=== PATIENT | female | born 1965 | race Caucasian/White ===

== ENCOUNTER → 2016-06-01 16:41 | Outpatient (CLI) | payer MEDICARE, MEDICAID ==
[2016-04-05 07:28] VITALS: BMI 65.6
[~2016-06-01 16:41] MED LIST: AMITRIPTYLINE100 MG PO; CELEXA10 MG PO; GLUCOPHAGE500 MG PO; LYRICA150 MG PO; MOBIC7.5 MG PO; MYLANTA II SUSP30 ML PO; PRINIVIL20 MG PO; ULTRAM50 MG PO; VITAMIN D2000 UNIT PO; ZOCOR20 MG PO; ZYRTEC10 MG PO
== END | disposition home or self-care (01) ==
LOC: D.MAMMO 10:00
DX: Z12.31 Encounter for screening mammogram for malignant neoplasm of breast (principal)

== ENCOUNTER 2016-06-14 15:06 | Emergency (ER) | payer MEDICARE, MEDICAID ==
[2016-04-05 07:28] VITALS: BMI 65.6
[2016-06-14 16:57] LABS: APPEARANCE HAZY (CLEAR); COLOR YELLOW (YELLOW); LEUKOCYTE ESTERASE TRACE (NEGATIVE); SPECIFIC GRAVITY 1.015 (1.005-1.020)
[2016-06-14 16:58] LABS: BILIRUBIN NEGATIVE (NEGATIVE); GLUCOSE NEGATIVE (NEGATIVE); KETONE NEGATIVE (NEGATIVE); NITRITE POSITIVE (NEGATIVE); PROTEIN NEGATIVE (NEGATIVE); UROBILINOGEN NORMAL (NORMAL)
[2016-06-14 16:59] LABS: BACTERIA MANY /hpf (NONE SEEN); EPITHELIAL CELLS 0-5 /hpf (0-5); RED CELLS - URINE NONE SEEN /hpf (0-5); WHITE CELLS - URINE 0-5 /hpf (0-5)
== END 2016-06-14 23:47 | disposition home or self-care (01) ==
LOC: D.ER 15:06
PROVIDERS: Emergency Medicine
DX: M54.5 Low back pain (principal); N39.0 Urinary tract infection, site not specified; F32.9 Major depressive disorder, single episode, unspecified; M79.7 Fibromyalgia; I10 Essential (primary) hypertension

== ENCOUNTER 2016-07-29 19:36 | Emergency (ER) | payer MEDICARE, MEDICAID ==
[2016-04-05 07:28] VITALS: BMI 65.6
== END 2016-07-29 23:09 | disposition home or self-care (01) ==
LOC: D.ER 19:36
DX: M25.412 Effusion, left shoulder (principal); M25.512 Pain in left shoulder; M79.7 Fibromyalgia; I10 Essential (primary) hypertension

== ENCOUNTER 2016-08-09 18:01 | Emergency (ER) | payer MEDICARE, MEDICAID ==
[2016-04-05 07:28] VITALS: BMI 65.6
== END 2016-08-09 23:16 | disposition home or self-care (01) ==
LOC: D.ER 18:01
DX: S16.1XXA Strain of muscle, fascia and tendon at neck level, initial encounter (principal); V43.52XA Car driver injured in collision with other type car in traffic accident, initial encounter; Y93.89 Activity, other specified; Y92.410 Unspecified street and highway as the place of occurrence of the external cause

== ENCOUNTER → 2016-09-01 19:10 | Outpatient (CLI) | payer MEDICARE, MEDICAID ==
[2016-04-05 07:28] VITALS: BMI 65.6
== END | disposition home or self-care (01) ==
LOC: D.SLEEP 19:10
DX: G47.33 Obstructive sleep apnea (adult) (pediatric) (principal)

== ENCOUNTER → 2016-09-17 12:47 | Outpatient (CLI) | payer MEDICARE, MEDICAID ==
[2016-04-05 07:28] VITALS: BMI 65.6
== END | disposition home or self-care (01) ==
LOC: D.RT 09-16 08:00 → D.RAD 09-16 09:00 → D.LAB 09-16 09:30 → D.SLEEP 09-16 20:00 → D.RT 12:47
DX: R06.00 Dyspnea, unspecified (principal)

== ENCOUNTER → 2016-09-20 19:29 | Outpatient (CLI) | payer MEDICARE, MEDICAID ==
[2016-04-05 07:28] VITALS: BMI 65.6
== END | disposition home or self-care (01) ==
LOC: D.SLEEP 09-16 20:00
DX: G47.33 Obstructive sleep apnea (adult) (pediatric) (principal)

== ENCOUNTER → 2016-10-18 08:58 | Outpatient (CLI) | payer MEDICARE, MEDICAID ==
[2016-04-05 07:28] VITALS: BMI 65.6
--- NOTE | ~2016-10-18 | EC ---
PATIENT:EMILE GRULLON DATE OF SERVICE: 10/18/16 SEX: F MEDICAL RECORD: [id number] DATE OF : 67 LOCATION:[facility] AGE OF PATIENT: 50 ADMISSION DATE: 10/18/16 REFERRING PHYSICIAN: INTERPRETING PHYSICIAN: GABE COE MD ECHOCARDIOGRAM REPORT ECHO CHARGES 4 ECHO COMPLETE CLINICAL DIAGNOSIS: DYSPNEA/TACHYCARDIA/EDEMA ECHOCARDIOGRAPHIC MEASUREMENTS (adult normal given) AC root (d.<3.7cm) 2.8 LV Septum d (<1.2 cm> 1.6 Valve Excursion 1.9 LV Septum (systole) 1.7 Left Atria (s.<4.0cm> 4.6 LVPW d(<1.2cm) 1.2 RV (d.<2.3cm) 2.8 LVPW (sytole) 1.7 LV diastole(<5.6CM) 4.5 MV E-F(>70mm/sec) LV systole 2.8 LVOT Diameter 2.1 MV exc.(>10mm) Est.ejection fraction (50-75%) Pericardial Effusion N DOPPLER: LVIT A 53.0 E 96.0 LA RVSP 29.0 LVOT 100 AOP1/2T Asc. Ao 116 RVOT 58.0 RA PA 85.0 AV Gradient Peak 5.4 AV Mean 2.6 AV Area 2.8 MV Gradient Peak 4.7 MV Mean 1.5 MV Area COMMENTS: Aeronautical Engineering Teacher: Kym PEREZOE Export Sales Assistant:10 Dr. Cook TAPE# PACS DATE OF SERVICE: 10/18/2016 Adequate 2D echo, color flow, spectral Doppler and M-mode. LVH present. LV internal dimension is normal. Wall motion is normal. EF is greater than 55%. Aortic valve is tricuspid. No stenosis by Doppler interrogation. The left atrium is normal. Mitral valve shows no prolapse. Trace MR. Right-sided chamber is normal. Trace TR. TRANSINT:[id number] Voice Confirmation ID: [id number] DOCUMENT ID: [id number] ECHOCARDIOGRAM REPORT [id number] EMILE GRULLON GABE COE MD CC: [id number] DICTATION DATE: 10/18/16 1337 OPERATOR CAVITY PUMP: 10/19/16 0014 DEP CLI 10/18/[address] [address]
[2016-10-18 10:52] LABS: CREATININE - SERUM 0.9 mg/dL (0.6-1.3)
--- NOTE | 2016-10-18 14:28 | NUR ---
Called to IR to assist with starting an IV for procedure. 20 gauge inserted in left ac for access. Vanna Luu RN
== END | disposition home or self-care (01) ==
LOC: D.ECHO 08:58
PROVIDERS: Internal Medicine Pulmonary Disease
DX: R60.0 Localized edema (principal); R00.0 Tachycardia, unspecified; R06.00 Dyspnea, unspecified

== ENCOUNTER 2017-02-11 16:30 | Emergency (ER) | payer MEDICARE, MEDICAID ==
[2016-04-05 07:28] VITALS: BMI 65.6
== END 2017-02-11 19:24 | disposition home or self-care (01) ==
LOC: D.ER 16:30
DX: S39.012A Strain of muscle, fascia and tendon of lower back, initial encounter (principal); W01.0XXA Fall on same level from slipping, tripping and stumbling without subsequent striking against object, initial encounter; Y93.89 Activity, other specified; Y92.029 Unspecified place in mobile home as the place of occurrence of the external cause; S93.401A Sprain of unspecified ligament of right ankle, initial encounter; S80.01XA Contusion of right knee, initial encounter; S70.01XA Contusion of right hip, initial encounter; I10 Essential (primary) hypertension

== ENCOUNTER 2017-05-30 22:03 | Emergency (ER) | payer MEDICARE, MEDICAID ==
[2016-04-05 07:28] VITALS: BMI 65.6
== END 2017-05-30 23:33 | disposition home or self-care (01) ==
LOC: D.ER 22:03
DX: M25.561 Pain in right knee (principal); F17.200 Nicotine dependence, unspecified, uncomplicated

== ENCOUNTER 2019-01-16 19:00 | Outpatient (CLI) | payer MEDICARE ==
[2016-04-05 07:28] VITALS: BMI 65.6
== END 2019-01-16 23:59 | disposition home or self-care (01) ==
LOC: D.MAMMO 19:00
PROVIDERS: ATTEND Nurse Practitioner Family
DX: Z12.31 Encounter for screening mammogram for malignant neoplasm of breast (principal)

== ENCOUNTER 2019-04-28 11:50 | Emergency (ER) | payer MEDICARE ==
[~2019-04-28] VITALS: Ht 160 cm; Wt 146.8 kg
[2019-04-28 11:56] VITALS: Ht 160 cm; Wt 146.8 kg
[2019-04-28] MEDS ORDERED: AMBIEN5 MG PO (11:59)
[2019-04-28] MEDS ORDERED: TOPAMAX100 MG PO (12:00)
[2019-04-28] MEDS ORDERED: LEXAPRO20 MG PO (12:00)
[2019-04-28] MEDS ORDERED: BIRTH CONTROL (12:00)
[2019-04-28] MEDS ORDERED: PEPCID40 MG PO (12:01)
[2019-04-28 12:18] LABS: BASOPHILS 0.2 % (0-2); HEMOGLOBIN 15.3 g/dL (12-16); IMMATURE GRANULOCYTES 0.3 % (0-5); MCH 29.7 pg (26.0-34.0); MCHC 33.3 g/dL (31.0-37.0); MCV 89.1 fL (80.0-100.0); MEAN PLATELET VOLUME 8.9 fL (7.4-10.4); MONOCYTES 6.2 % (2-11); NEUTROPHILS 73.3 % (40-80); PLATELET COUNT 258 10x3/uL (130-400); RBC 5.16 10x6/uL (4.00-5.40); RDW 13.9 % (11.5-14.5)
[2019-04-28 12:31] LABS: ANION GAP 12.7 mmol/L (8-16); CALCIUM 8.8 mg/dL (8.5-10.1); CARBON DIOXIDE 24.6 mmol/L (21.0-32.0); POTASSIUM - SERUM 3.3 mmol/L (3.5-5.1)
[2019-04-28 12:34] LABS: ALBUMIN 3.4 g/dL (3.4-5.0); BILIRUBIN - TOTAL 0.52 mg/dL (0.2-1.3); PROTEIN - SERUM 7.5 g/dL (6.4-8.2)
[2019-04-28 14:01] LABS: APPEARANCE CLEAR (CLEAR); BILIRUBIN NEGATIVE (NEGATIVE); COLOR YELLOW (YELLOW); GLUCOSE NEGATIVE (NEGATIVE); KETONE SMALL mg/dL (NEGATIVE); NITRITE NEGATIVE (NEGATIVE); PROTEIN TRACE mg/dL (NEGATIVE); UROBILINOGEN NORMAL (NORMAL)
[2019-04-28 14:05] LABS: BACTERIA FEW /hpf (NEGATIVE); EPITHELIAL CELLS 0-5 /hpf (0-5); MUCUS >1+ /lpf (NONE SEEN); RED CELLS - URINE 0-5 /hpf (0-5); WHITE CELLS - URINE 0-5 /hpf (NEGATIVE)
[2019-04-28] MEDS ORDERED: KEFLEX500 MG PO (14:39)
[2019-04-28] MEDS ORDERED: MACROBID100 MG PO (14:39)
[2019-04-28] MEDS ORDERED: ZOFRAN ODT4 MG/UDTAB PO (14:48)
[2019-04-28 15:06] VITALS: BP 141/70
== END 2019-04-28 15:07 | disposition home or self-care (01) ==
LOC: D.ER 11:50
PROVIDERS: Family Medicine
DX: R10.9 Unspecified abdominal pain (principal); R19.7 Diarrhea, unspecified; R11.2 Nausea with vomiting, unspecified; N39.0 Urinary tract infection, site not specified; M79.7 Fibromyalgia; I10 Essential (primary) hypertension

== ENCOUNTER 2019-05-10 14:13 | Inpatient (IN) | payer MEDICARE ==
[2019-05-10] VITALS (9 sets, daily range): BP systolic 111–151; BP diastolic 59–94
[~2019-05-10] VITALS: Ht 160 cm; Wt 140.0 kg
--- NOTE | ~2019-05-10 | HEMODYNAMI ---
PATIENT:EMILE GRULLON MEDICAL RECORD: [id number] : 67 LOCATION:[facility] D.2309 ADMISSION DATE: 05/10/19 Generatedon:05/14/201913:14 Patient name: EMILE GRULLON Patient #: [id number] SSN: DO B: 1965 Date of study: 05/14/2019 Page: Of Hemodynamic Procedure Report Patient Data Patient Demographics Procedure consent was obtained First Name: EMILE Gender: Female Last Name: YADI : 1965 [facility] Initial: K Age: 53 year(s) Patient #: [id number] Race: Unknown Additional ID: [id number] Contact details [address]: [address] [place] [address] State: [place] City: [facility] Zip code: [address] Past Medical History Allergies Allergen Reaction Date Comments Reported Tomatoes and 05/14/2019 tomato products Admission Admission Data Admission Date: 05/10/2019 Admission Time: 17:09 Room #: D.2309 Height (in.): 63 BSA: 2.33 (m2) Height (cm.): 160.02 BMI: 54.74 (kg/m2) Weight (lbs.): 309 Weight (kg.): 140.16 Procedure Procedure Types Cath Procedure Peripheral Cath Diagnostic Procedure Nremt Peripheral Procedures Venography Extremity Right Lower Ext. Venagram Procedure Description Procedure Date Procedure Date: 05/14/2019 Procedure Start Time: 12:03 Procedure Staff Name Function Larry Hester MD Performing Physician Shanna Degroot RT Mat Linker Christal Calles RN Nurse Denisha Cristina RN Nurse Ceasar Raya RT Scrub Procedure Data Cath Procedure Fluoroscopy Diagnostic fluoroscopy Total fluoroscopy Time: 8.8 time: 8.8 min min Diagnostic fluoroscopy Total fluoroscopy dose: 89 dose: 89 mGy mGy Contrast Material Contrast Material Type Amount (ml) Isovue 300 65 Diagnostic catheters Device Type Used For End Catheter Placement Merit Impress KA2 5Fr 65CM catheter ([id number]) Procedure Medications Medication Administration Route Dosage Heparin Flush Bag added to field 3 bags (1000units/500ml NS) Lidocaine 1% added to field 20 Versed I.V. 1 mg Fentanyl I.V. 50 mcg Versed I.V. 1 mg Fentanyl I.V. 50 mcg Versed I.V. 1 mg Fentanyl I.V. 50 mcg Heparin Bolus I.V. 3000 units Fentanyl I.V. 50 mcg Versed I.V. 1 mg Nitroglycerin IC/IA 600 mcg Benadryl I.V. 25 mg Versed I.V. 0.5 mg Fentanyl I.V. 25 mcg Hemodynamics Rest BSA: 2.33 (m2) O2 Consumption: Estimated: 210.15 (ml/min) O2 Consumption indexed : Estimated:90.19 (ml/min/m) Heart Rate: 51 (bpm) Snapshots Pre Cath Intra NCS Post Cath Vital Signs Time Heart Resp SPO2 etCO2 NIBP (mmHg) Rhythm Pain Sedation Rate (ipm) (%) (mmHg) Status Level (bpm) 11:55:41 52 13 98 26.3 134/71(104) NSR 0 (11) 10(A) , No pain 12:00:05 51 7 100 35.4 126/75(117) NSR 0 (11) 10(A) , No pain 12:04:29 53 9 100 21 138/77(116) NSR 0 (11) 10(A) , No pain 12:08:53 59 4 100 32.3 111/65(87) NSR 0 (11) 10(A) , No pain 12:13:11 68 10 90 0.7 115/82(91) NSR 0 (11) 10(A) , No pain 12:17:33 68 10 93 31.6 116/71(109) NSR 0 (11) 10(A) , No pain 12:21:56 58 6 99 29.3 132/68(114) NSR 0 (11) 10(A) , No pain 12:26:26 54 10 100 33.8 119/71(111) NSR 0 (11) 10(A) , No pain 12:30:50 63 12 100 35.3 107/73(99) NSR 0 (11) 10(A) , No pain 12:35:49 70 8 100 34.6 Measuring NSR 0 (11) 10(A) , No pain 12:36:05 67 8 99 33.8 110/73(104) NSR 0 (11) 10(A) , No pain 12:40:18 62 8 98 30.8 127/88(103) NSR 0 (11) 10(A) , No pain 12:44:38 56 19 100 30.1 139/86(117) NSR 0 (11) 10(A) , No pain 12:48:56 60 16 100 33.1 131/95(119) NSR 0 (11) 10(A) , No pain 12:53:18 57 6 99 9 130/91(121) NSR 0 (11) 10(A) , No pain 12:57:40 60 8 100 0.7 124/87(115) NSR 0 (11) 10(A) , No pain 13:02:39 53 7 0 Measuring NSR 0 (11) 10(A) , No pain 13:02:58 56 7 0 145/86(138) NSR 0 (11) 10(A) , No pain 13:07:57 0 Measuring NSR 0 (11) 10(A) , No pain 13:08:37 0 174/131(158) NSR 0 (11) 10(A) , No pain 13:12:37 0 No Cuff NSR 0 (11) 10(A) , No pain Medications Time Medication Route Dose Verified Delivered Reason Notes Eff ectiveness by by 11:53:51 Heparin Flush added 3 bags Larry Juarez used for Bag to Mir Hester procedure (1000units/500ml field MD TRAYLOR NS) 11:54:03 Lidocaine 1% added 20ml Larry Juarez for local to vial Mir Hester anesthetic field MD TRAYLOR 12:02:58 Versed I.V. 1 mg Larry Siegel for Mir Calles RN sedation 12:03:11 Fentanyl I.V. 50 mcg Larry Siegel for Mir Calles RN sedation 12:06:01 Versed I.V. 1 mg Larry Siegel for Mir Calles RN sedation 12:06:09 Fentanyl I.V. 50 mcg Larry Siegel for Mir Calles RN sedation 12:09:04 Versed I.V. 1 mg Larry Siegel for Mir Calles RN sedation 12:09:12 Fentanyl I.V. 50 mcg Larry Kimbroughody for Mir Calles RN sedation 12:26:31 Heparin Bolus I.V. 3000 Larry Denny used for units Mir Cristina RN procedure 12:33:20 Fentanyl I.V. 50 mcg Larry Denny for Mir Cristina RN sedation 12:33:29 Versed I.V. 1 mg Larry Guerreroi for Mir Cristina RN sedation 12:37:09 Nitroglycerin 600mcg Larry Denny IC/IA Mir Cristina RN, MD 12:46:15 Benadryl I.V. 25 mg Larry Denny Per Mir Cristina RN physician 12:47:15 Versed I.V. 0.5 mg Larry Guerreroi for Mir Cristina RN sedation 12:47:24 Fentanyl I.V. 25 mcg Larry Guerreroi for Mir Cristina RN sedation Procedure Log Time Note 11:31:33 Patient Height : 63 inches 11:31:40 Patient Weight : 309 lbs 11:32:12 Time tracking: Regular hours (M-F 7:00 - 5:00) 11:32:33 Use device set IR Diagnostic 11:32:35 Tegaderm 4 x 4 (1626W) opened to sterile field. 11:32:36 Sterile Angiographic Pack opened to sterile field. 11:32:37 Bag Decanter (2002S) opened to sterile field. 11:32:51 BENTSON 145cm wire ([id number]) opened to sterile field. 11:33:28 Micropuncture VSI 4FR kit opened to sterile field. 11:33:42 Patient received from ICU to IR Alert and oriented. Tansferred to table in Prone position. 11:33:45 Correct patient and procedure confirmed by team. 11:33:48 Signed procedure consent form obtained from patient. 11:33:53 Family in waiting room. 11:33:57 Patient NPO since Midnight. 11:34:19 Patient allergic to Tomatoes and tomato products 11:35:14 - 11:36:33 Is the patient allergic to Iodine/contrast media? No. 11:39:23 H&P Date Dictated: 05/14/2019 Within 30 days and on chart.. 11:39:25 Pre-procedure instructions explained to patient. 11:39:26 Pre-op teaching completed and patient verbalized understanding. 11:39:31 Is patient on blood thinner?Yes 11:39:33 Patient diabetic? No. 11:39:38 - 11:39:39 ----Pre-sedation anethsthesia assessment.---- 11:39:42 Previous problem with sedation/anesthesia? No ? 11:39:46 Snore? Yes 11:39:48 Sleep apnea? Yes 11:39:51 Deviated septum? No 11:39:54 Opens mouth fully? Yes 11:39:56 Sticks out tongue? Yes 11:39:59 Airway obstruction? No ? 11:40:04 Dentures? No ? 11:40:06 - 11:40:21 IV patent on arrival in left forearm with D5/.45%NaCl at KVO. 11:40:38 Popliteal region area was prepped with chlora-prep and draped in steril e fashion 11:40:40 - 11:40:54 Fire Safety Assessment: A--An alcohol-based skin anteseptic being used preoperatively., C--Open oxygen or nitrous oxide is being used. 11:41:01 2) 60-89 Mildly reduced kidney function, and other findings (as for stage 1) point to kidney disease. 11:41:32 Maximum allowable contrast dose (3.7 X eGFR X 0.75)172 ml. 11:53:51 Heparin Flush Bag (1000units/500ml NS) 3 bags added to field was administered by Larry Hester MD; used for procedure; Verbal order read back and verified. 11:54:03 Lidocaine 1% 20ml vial added to field was administered by Larry torres MD; for local anesthetic; Verbal order read back and verified. 11:54:09 Vital chart was started 11:59:36 ECG and BP/O2 sat monitors applied to patient. 11:59:38 Baseline sample Acquired. 11:59:39 Full Disclosure recording started 11:59:41 - 12:02:36 Physician arrived 12:02:37 --------ALL STOP TIME OUT------ 12:02:38 Final Timeout: patient, procedure, and site verified with staff and physician. All members of the team are in agreement. 12:02:58 Versed 1 mg I.V. was administered by Christal Calles RN; for sedation; Verbal order read back and verified. 12:03:05 Procedure started. 12:03:11 Fentanyl 50 mcg I.V. was administered by Christal Calles RN; for sedation ; Verbal order read back and verified. 12:03:16 Local anesthetic to right popliteal vein with Lidocaine 1% by Larry Hester MD.INITIAL ACCESS ONLY 12:03:19 Venous access obtained using ultrasound guidance. 12:05:48 SHEATH 6FR Brite Tip 35cm ([id number]) opened to sterile field. 12:06:01 Versed 1 mg I.V. was administered by Christal Calles RN; for sedation; Verbal order read back and verified. 12:06:01 A [employer] Impress KA2 5Fr 65CM catheter ([id number]) was advanced over the wire and used for . 12:06:09 Fentanyl 50 mcg I.V. was administered by Christal Calles RN; for sedation ; Verbal order read back and verified. 12:09:04 Versed 1 mg I.V. was administered by Christal Calles RN; for sedation; Verbal order read back and verified. 12:09:12 Fentanyl 50 mcg I.V. was administered by Christal Calles RN; for sedation ; Verbal order read back and verified. 12:20:44 ROADRUNNER .035 145 glide wire ([id number]) opened to sterile field. 12:23:31 Tegaderm 4 x 4 (1626W) opened to sterile field. 12:26:31 Heparin Bolus 3000 units I.V. was administered by Denisha Cristina RN; used for procedure; Verbal order read back and verified. 12:31:23 ALANIS 180cm wire ([id number]) opened to sterile field. 12:31:51 Angiojet PROXI 6Fr 90CM thrombectomy catheter opened to sterile field. 12:33:20 Fentanyl 50 mcg I.V. was administered by Denisha Cristina RN; for sedation; Verbal order read back and verified. 12:33:29 Versed 1 mg I.V. was administered by Denisha Cristina RN; for sedation; Verbal order read back and verified. 12:37:09 Nitroglycerin IC/IA 600mcg was administered by Denisha Cristina RN; ; Verba l order read back and verified. 12:46:15 Benadryl 25 mg I.V. was administered by Denisha Cristina RN; Per physician; Verbal order read back and verified. 12:47:15 Versed 0.5 mg I.V. was administered by Denisha Cristina RN; for sedation; Verbal order read back and verified. 12:47:24 Fentanyl 25 mcg I.V. was administered by Denisha Cristina RN; for sedation; Verbal order read back and verified. 12:50:04 Procedure ended.(Physican Out) 12:50:24 Fluoroscopy time 08.80 minutes. 12:50:46 Fluoroscopy dose: 89 mGy 12:50:46 Flurop Dose total: 89 12:50:51 Contrast amount:Isovue 300 65ml. 12:50:54 Procedure and supply charges have been captured, reviewed, submitted an d are correct. 12:54:53 Report given to Med II. 13:14:06 Vital chart was stopped Device Usage Item Name Manufacture Quantity Catalog Hospital Part Current Minima l Lot# / Number Charge Number Stock Stock Serial# Code Tegaderm 4 x 3M 2 1626W [id number] 201917 [id number] 5 4 (1626W) Sterile Cardinal 1 [id number] 363785 117980 5 Angiographic Health Pack Bag Decanter Microtek 1 2001S 779046 94876 392489 5 (2001S) Medical Inc. BENTSON 145cm Cook Medical 1 [id number] 717027 260062 5 wire ([id number]) Micropuncture VSI VASCULAR 1 7266V 771643 362796 5 VSI 4FR kit SOLUTIONS SHEATH 6FR Cardinal 1 [id number] 134871 580581 796726 1 Health Equity Labse Tip Health 35cm (651142W) Merit Impress Merit 1 [id number] 215347 651882 5 KA2 5Fr 65CM Medical catheter ([id number]) ROADRUNN Cook Medical 1 K16555 045472 066621 270343 5 .035 145 glide wire (I93800) ALANIS 180cm Cook Medical 1 X93152 627277 234737 5 wire (V88784) Angiojet [place] 1 463170-748 032201 681103 623405 5 PROXI 6Fr Scientific 90CM thrombectomy catheter Signature [employer] [place] Stage Time Signature Unsigned Intra-Procedure 05/14/2019 Shanna Degroot 1:14:01 PM RT(R) [facility] [address] [place] [address]
[~2019-05-10 14:13] MED LIST changes: +AMBIEN5 MG PO; +BIRTH CONTROL; +KEFLEX500 MG PO; +LEXAPRO20 MG PO; +MACROBID100 MG PO; +PEPCID40 MG PO; +TOPAMAX100 MG PO; +ZOFRAN ODT4 MG/UDTAB PO
[2019-05-10] MEDS ORDERED: HYDROCODON-ACE1 EA10 PO (14:22)
[2019-05-10 14:40] LABS: BASOPHILS 0.5 % (0-2); EOSINOPHILS 6.4 % (0-7); HEMATOCRIT 41.3 % (36.0-48.0); HEMOGLOBIN 13.7 g/dL (12-16); IMMATURE GRANULOCYTES 0.3 % (0-5); LYMPHOCYTES 20.1 % (15-50); MCH 29.4 pg (26.0-34.0); MCHC 33.2 g/dL (31.0-37.0); MCV 88.6 fL (80.0-100.0); MEAN PLATELET VOLUME 8.9 fL (7.4-10.4); MONOCYTES 8.8 % (2-11); NEUTROPHILS 63.9 % (40-80); RBC 4.66 10x6/uL (4.00-5.40); RDW 14.1 % (11.5-14.5); WBC 9.5 10x3/uL (4.8-10.8)
[2019-05-10 14:44] LABS: PLATELET COUNT 188 10x3/uL (130-400)
[2019-05-10 15:07] LABS: APTT 27.6 SECONDS (22.8-39.4); INR 1.07 (0.85-1.17); PROTIME 13.4 SECONDS (11.6-15.0)
[2019-05-10 15:11] LABS: CALC OSMOLALITY 280 mosm/kg (275-300); CALCIUM 8.5 mg/dL (8.5-10.1); CARBON DIOXIDE 23.1 mmol/L (21.0-32.0); CHLORIDE - SERUM 106 mmol/L (98-107); CREATININE - SERUM 0.8 mg/dL (0.6-1.3); GLUCOSE 98 mg/dL (74-106); POTASSIUM - SERUM 3.2 mmol/L (3.5-5.1); SODIUM 140 mmol/L (136-145); UREA NITROGEN 17 mg/dL (7-18); eGFR NON AFRICAN AMERICAN 80 mL/min (90-120)
[2019-05-10 15:27] LABS: D-DIMER-QUANTITATIVE > 20.00 ug/mLFEU (0.20-0.54)
[2019-05-10 15:32] LABS: ALKALINE PHOSPHATASE 87 U/L (46-116); ALT (SGPT) 29 U/L (10-68); BILIRUBIN - TOTAL 0.33 mg/dL (0.2-1.3); CKMB 0.5 U/L (0.0-3.6); CREATINE KINASE 48 UL (21-215); MAGNESIUM - SERUM 2.2 mg/dL (1.8-2.4); PROTEIN - SERUM 7.4 g/dL (6.4-8.2)
[2019-05-10 15:34] LABS: TROPONIN-I 0.114 ng/mL (0.000-0.060)
--- NOTE | 2019-05-10 15:44 | NUR ---
CRITICAL LAB CALLED TROP 0.114 DIMER GREATER THAN 20
--- NOTE | 2019-05-10 16:46 | NUR ---
REPORTS CHEST PRESSURE BETTER AFTER NTG, BREATHING "EASIER"
--- NOTE | 2019-05-10 17:50 | NUR ---
REC'D VIA STRETCHER FROM ER NURSE, WOOD, TRANSFERRED TO ICU BED, CONNECTED TO ICU MONITORS, VSS, DENIES PAIN AT THIS TIME, HEPARIN INFUSING AT 12 U/HR TO LEFT AC, ECHO COMPLETED AT BEDSIDE, ACCLAMATED TO ICU, AND HISTORY INITIATED, CALL LIGHT IN REACH, SIGNIFICANT OTHER TO BEDSIDE, STATUS UPDATED, VOICES NO NEEDS AT THIS TIME
[2019-05-10] MEDS ORDERED: LISINOPRIL-HCT1 EAC7 PO (17:53)
--- NOTE | 2019-05-10 19:15 | NUR ---
PT SITTING UP IN BED. NO FAMILY AT BESIDE AT THIS MOMENT. CL IN REACH. RESP EVEN AND UNLABORED. PT DID MENTION THAT SOMEONE TOLD HER SHE WOULD NEED A SAENZ. PAGE DAMIAN WAITING FOR PAGE BACK. LUNGS CLEAR. BOWEL ACTIVE X4. A/O X4. DENIES NEEDS AT THIS TIME. WILL CONTINUE TO MONITOR.
--- NOTE | 2019-05-10 21:15 | NUR ---
DAMIAN PAGED BACK AND SAID NO ON THE SAENZ THAT PT WAS ALLOWED TO GET UP TO BEDSIDE COMMODE ONLY.
[2019-05-10 21:55] LABS: INR 1.15 (0.85-1.17); PROTIME 14.2 SECONDS (11.6-15.0)
--- NOTE | 2019-05-10 22:03 | NUR ---
PUT ORDER IN FOR LAB AT 2049 FOR INR AND APTT LABS TO BE DRAWN AT 2100. NO LAB RESULTS HAVE RESULTED AT THIS MOMENT WAITING FOR RESULTS DUE TO HEPARIN DRIP. WCTM
--- NOTE | 2019-05-10 22:33 | NUR ---
CALLED LAB ABOUT APTT RESULTS AND STOCK CAR DRIVER SAID "MACHINE IS GIVING US TROUBLE AND SHOULD BE BACK UP IN TEN MIN." WCTM
[2019-05-10 22:49] LABS: APTT 83.1 SECONDS (22.8-39.4)
--- NOTE | 2019-05-10 23:00 | NUR ---
NO CHANGE ON APTT RESULTS ON HEPARIN DRIP. REASSESSMENT COMPLETED. CL IN REACH. DENIES NEEDS AT THIS TIME. HOME MEDS ORDERED PER PT REQUEST BY LUISA LEVIN. CHEMA
[2019-05-11] VITALS (24 sets, daily range): BP systolic 107–143; BP diastolic 62–103; BMI 55.0
--- NOTE | 2019-05-11 01:00 | NUR ---
PT RESTING QUIETLY. CL IN REACH. NO DISTRESS NOTED. WCTM
--- NOTE | 2019-05-11 03:00 | NUR ---
PT RESTING QUIETLY. CL IN REACH. NO DISTRESS NOTED. VITALS WNL. WCTM
[2019-05-11 04:06] LABS: EOSINOPHILS 8.6 % (0-7); HEMATOCRIT 37.5 % (36.0-48.0); HEMOGLOBIN 12.2 g/dL (12-16); IMMATURE GRANULOCYTES 0.6 % (0-5); LYMPHOCYTES 30.9 % (15-50); MCH 28.7 pg (26.0-34.0); MCHC 32.5 g/dL (31.0-37.0); MCV 88.2 fL (80.0-100.0); MEAN PLATELET VOLUME 8.8 fL (7.4-10.4); MONOCYTES 11.9 % (2-11); PLATELET COUNT 176 10x3/uL (130-400); RBC 4.25 10x6/uL (4.00-5.40); RDW 14.1 % (11.5-14.5)
[2019-05-11 04:30] LABS: ALBUMIN 2.6 g/dL (3.4-5.0); ANION GAP 11.2 mmol/L (8-16); BILIRUBIN - TOTAL 0.2 mg/dL (0.2-1.3); CALCIUM 8.2 mg/dL (8.5-10.1); CARBON DIOXIDE 26.2 mmol/L (21.0-32.0); CREATININE - SERUM 0.9 mg/dL (0.6-1.3); MAGNESIUM - SERUM 2.5 mg/dL (1.8-2.4); POTASSIUM - SERUM 3.4 mmol/L (3.5-5.1); PROTEIN - SERUM 6.3 g/dL (6.4-8.2)
--- NOTE | 2019-05-11 05:00 | NUR ---
PT RESTING QUIETLY. CL IN REACH. NO DISTRESS NOTED. WCTM
--- NOTE | 2019-05-11 05:37 | NUR ---
I have reviewed this patient and I concur with the Shift Assessment completed by the Licensed Practical Nurse today this shift.
[2019-05-11 06:31] LABS: INR 1.07 (0.85-1.17); PROTIME 13.4 SECONDS (11.6-15.0)
[2019-05-11 06:32] LABS: APTT 78.8 SECONDS (22.8-39.4)
--- NOTE | 2019-05-11 06:40 | NUR ---
APTT RESULTS 78.8 NO CHANGE IN HEPARIN DRIP RATE.
--- NOTE | 2019-05-11 07:29 | NUR ---
RECIEVED REPORT. PATIENT IS RESTING QUIETLY AT THIS TIME. HEPARIN DRIP INFUSING, APTT IS AT THERAPUTIC RANGE. WILL CONTINUE TO MONITOR CLOSELY.
--- NOTE | 2019-05-11 08:48 | NUR ---
PATIENT IS RESTING QUIETLY AT THIS TIME. SHE DENIES ANY NEEDS AT THIS ITME.
--- NOTE | 2019-05-11 10:35 | NUR ---
PATIENT GOT UP TO THE BEDSIDE COMMODE, AND COLLECTED URINE SAMPLE. PATIENT IS ABLE TO GET UP TO THE BED SIDE COMMODE ON HER OWN. SHE DENIES ANY NEEDS OR PAIN AT THIS TIME.
[2019-05-11 10:42] LABS: APPEARANCE CLOUDY (CLEAR); COLOR DK YELLOW (YELLOW)
[2019-05-11 10:43] LABS: BILIRUBIN NEGATIVE (NEGATIVE); GLUCOSE NEGATIVE (NEGATIVE); KETONE NEGATIVE (NEGATIVE); NITRITE NEGATIVE (NEGATIVE); PROTEIN TRACE mg/dL (NEGATIVE); UROBILINOGEN NORMAL (NORMAL)
[2019-05-11 10:45] LABS: BACTERIA MODERATE /hpf (NEGATIVE); MUCUS <1+ /lpf (NONE SEEN); RED CELLS - URINE 0-5 /hpf (0-5); WHITE CELLS - URINE 0-5 /hpf (NEGATIVE)
--- NOTE | 2019-05-11 12:27 | NUR ---
PATIENT IS SITTING UP IN BED EATTING LUNCH. SHE DENEIES ANY NEEDS AT THIS TIME.
--- NOTE | 2019-05-11 14:14 | NUR ---
INTERVENTIONAL RADIOLOGY HAS BEEN CONSULTED AGAIN BY DR SALGADO. PATIENT IS HAVING A ULTRASOUND OF HER LEFT LEG. THE MAIN CONSERN IS OF THE RIGHT LEG. THERE IS EDEMA AND DISCOMFORT IN THE RIGHT CALF. PREPARING TO GIVE PATIENT A BED BATH.
--- NOTE | 2019-05-11 17:35 | NUR ---
PATIENT IS VISITING WITH HER SIGNIFICANT OTHER AT THIS TIME. HER RIGHT CALF IS LARGER THEN THE LEFT, AND IT IS PAINFUL TO THE TOUCH. SHE IS RESTING IN BED AT THIS IMTE AND DENIES ANY NEEDS AT THIS TIME.
--- NOTE | 2019-05-11 18:45 | NUR ---
PATIENT FINISHED HER BATH AND LININ CHANGE. FAMILY VISITED AND SHE IS SITTING UP EATTING DINNER. SHE DENIES ANY NEEDS AT THIS TIME.
--- NOTE | 2019-05-11 19:00 | NUR ---
ASSESSMENT COMPLETED. SITTING UP IN BED. INDEPENDENT WITH REPOSITIONING. DENIES ANY NEEDS. BREATHING ON ROOM AIR. LEFT AC IV WITH HEPARIN DRIP AT 1200 UNITS/HR.
--- NOTE | 2019-05-11 21:00 | NUR ---
DENIES ANY NEEDS. TOLERATED MEDICATION WITHOUT DIFFICULTY.
--- NOTE | 2019-05-11 23:00 | NUR ---
RE-ASSESSMENT COMPLETED. NO CHANGES SINCE LAST ASSESSMENT. LAYING BACK IN BED WITH EYES CLOSED, EASILY WAKES.
[2019-05-12] VITALS (25 sets, daily range): BP systolic 101–149; BP diastolic 56–96
--- NOTE | 2019-05-12 01:00 | NUR ---
LAYING BACK IN BED, EYES CLOSED. EASILY WAKES. DENIES ANY NEEDS. INDEPENDENT WITH REPOSITIONING
--- NOTE | 2019-05-12 03:00 | NUR ---
RE-ASSESSMENT COMPLETED. NO CHANGES SINCE LAST ASSESSMENT. DENIES ANY NEEDS AT THIS TIME. EASILY WAKES TO NAME
[2019-05-12 04:19] LABS: BASOPHILS 0.7 % (0-2); EOSINOPHILS 8.6 % (0-7); HEMOGLOBIN 12.2 g/dL (12-16); IMMATURE GRANULOCYTES 0.4 % (0-5); LYMPHOCYTES 39.9 % (15-50); MCHC 32.1 g/dL (31.0-37.0); MEAN PLATELET VOLUME 8.7 fL (7.4-10.4); MONOCYTES 8.8 % (2-11); NEUTROPHILS 41.6 % (40-80); PLATELET COUNT 203 10x3/uL (130-400); RBC 4.21 10x6/uL (4.00-5.40); RDW 14.1 % (11.5-14.5)
[2019-05-12 04:24] LABS: MCV 90.3 fL (80.0-100.0)
[2019-05-12 04:42] LABS: ALBUMIN 2.5 g/dL (3.4-5.0); ALKALINE PHOSPHATASE 85 U/L (46-116); ALT (SGPT) 24 U/L (10-68); BILIRUBIN - TOTAL 0.17 mg/dL (0.2-1.3); CALC OSMOLALITY 283 mosm/kg (275-300); CALCIUM 8.1 mg/dL (8.5-10.1); CARBON DIOXIDE 25.3 mmol/L (21.0-32.0); CHLORIDE - SERUM 108 mmol/L (98-107); CREATININE - SERUM 0.7 mg/dL (0.6-1.3); GLUCOSE 113 mg/dL (74-106); MAGNESIUM - SERUM 2.3 mg/dL (1.8-2.4); POTASSIUM - SERUM 3.5 mmol/L (3.5-5.1); PROTEIN - SERUM 6.2 g/dL (6.4-8.2); SODIUM 141 mmol/L (136-145); UREA NITROGEN 19 mg/dL (7-18); eGFR NON AFRICAN AMERICAN > 90 mL/min (90-120)
--- NOTE | 2019-05-12 05:00 | NUR ---
LAYING IN BED. EYES CLOSED, EASILY WAKES. DENIES ANY NEEDS.
--- NOTE | 2019-05-12 07:24 | NUR ---
PATIENT IS RESTING QUIETLY AT THIS TIME. SHE DENIES ANY NEEDS.
--- NOTE | 2019-05-12 09:12 | NUR ---
PATIENT IS ALERT AND AWAKE. SHE JUST GOT UP TO THE BSC AND HAD A BM. SHE IS STILL ON THE HEPARIN DRIP ORDERED. SHE HAS APTT REDRAW ORDERED AT 11:00. SHE HAD BREAKFAST THIS MORNING AND WAS GROGGY. SHE HAS SOME IRRITATION ON HER RIGHT AC WHERE SHE HAD PAPER TAPE AFTER GETTING HER BLOOD DRAWN. CLEANED THE AREA WITH SOAP AND WATER AND DRIED GENTLY.
--- NOTE | 2019-05-12 10:38 | NUR ---
PATIENT IS SITTING UP IN BED. SHE JUST GOT THE REDRAW TO CHECK HER PTT, AND ACCORDING TO THE RESULTS WE WILL ADJUST THE HEPARIN ACCORDINGLY. THE REDRAW IS COVERING THE POTASSIUM WELL. SHE DENIES ANY OTHER NEEDS AT THIS TIME.
--- NOTE | 2019-05-12 11:17 | NUR ---
INCREASING HEPARIN FROM 1300 UNITS /HR TO 1400 UNITS PER HOUR AND ORDERING A REDRAW IN 6 HOURS PER HEPARIN PROTOCOL.
--- NOTE | 2019-05-12 13:03 | NUR ---
PATIENT IS SITTING UP IN BED FINISHING LUNCH. SHE DENIES ANY NEEDS AT THIS TIME. SHE HAS BEEN UP TO THE BEDSIDE COMMODE WITH NO ASSISTANCE. PHYSICAL THERAPY HAS ROUNDED TO CHECK IN ON THE PATIENT.
--- NOTE | 2019-05-12 16:22 | NUR ---
PATIENT IS ALERT AND AWAKE. SHE IS SITTING UP IN BED. DENIES ANY NEEDS AT THIS TIME.
--- NOTE | 2019-05-12 18:06 | NUR ---
LYING IN BED AWAKE AT THIS TIME VISITING WITH FAMILY. NO ACUTE DISTRESS NOTED. VSS. CALL LIGHT IN REACH. WILL CONTINUE PLAN OF CARE.
--- NOTE | 2019-05-12 18:28 | NUR ---
PER DR SALGADO, WILL DC HEPARIN GTT AND CHANGE TO LOVENOX.
--- NOTE | 2019-05-12 19:00 | NUR ---
ASSESSMENT COMPLETED. DENIES ANY NEEDS. REFUSED CHG TONIGHT. STATED "MY BOYFRIEND IS COMING IN THE MORNING AND HE CAN HELP ME THEN."
--- NOTE | 2019-05-12 21:00 | NUR ---
DENIES ANY NEEDS. FAMILY IN ROOM.
--- NOTE | 2019-05-12 23:00 | NUR ---
HEPARIN DRIP DC AND LOVENOX SHOTS BID STARTED. RE-ASSESSMENT COMPLETED. DENIES ANY NEEDS.
[2019-05-13] VITALS (24 sets, daily range): BP systolic 93–144; BP diastolic 57–90
--- NOTE | 2019-05-13 01:00 | NUR ---
EYES CLOSED, EASILY WAKES. DENIES ANY NEEDS
--- NOTE | 2019-05-13 03:00 | NUR ---
RE-ASSESSMENT COMPLETED. EYES CLOSED, EASILY WAKES, DENIES ANY NEEDS
[2019-05-13 04:31] LABS: BASOPHILS 0.6 % (0-2); HEMOGLOBIN 12.9 g/dL (12-16); IMMATURE GRANULOCYTES 0.7 % (0-5); LYMPHOCYTES 40.2 % (15-50); MCH 28.9 pg (26.0-34.0); MCHC 32.3 g/dL (31.0-37.0); MCV 89.7 fL (80.0-100.0); MEAN PLATELET VOLUME 8.9 fL (7.4-10.4); MONOCYTES 8.7 % (2-11); NEUTROPHILS 42.8 % (40-80); PLATELET COUNT 212 10x3/uL (130-400); RBC 4.46 10x6/uL (4.00-5.40)
[2019-05-13 04:39] LABS: ALBUMIN 2.5 g/dL (3.4-5.0); ANION GAP 13.6 mmol/L (8-16); BILIRUBIN - TOTAL 0.25 mg/dL (0.2-1.3); CALCIUM 8.7 mg/dL (8.5-10.1); CARBON DIOXIDE 25.2 mmol/L (21.0-32.0); MAGNESIUM - SERUM 2.2 mg/dL (1.8-2.4); PHOSPHOROUS 4.5 mg/dL (2.5-4.9); POTASSIUM - SERUM 3.8 mmol/L (3.5-5.1); PROTEIN - SERUM 6.2 g/dL (6.4-8.2)
[2019-05-13 04:40] LABS: CREATININE - SERUM 0.9 mg/dL (0.6-1.3)
--- NOTE | 2019-05-13 05:00 | NUR ---
EYES CLOSED, EASILY WAKES, DENIES ANY NEEDS. INDEPENDENT WITH REPOSITIONING
--- NOTE | 2019-05-13 07:30 | NUR ---
patient report recieved. patient sleeping. no acute distress. a and o x4. red swollen left calf muscle. patient states it is sore. educated patient on why we can;t ambulate but only to bedside commode. educated patient on why she should talk to her pcp about other control methods. see assessment. see adls. will continue to monitor pt
--- NOTE | 2019-05-13 09:19 | NUR ---
oral care done at this time. brekfast tray picked up. 100% eaten. no nausea or vomiting at this time. educated on patinet on zofran and its use. reminded patient to use call light for anything. at bedside. will continue to monitor.
--- NOTE | 2019-05-13 09:21 | NUR ---
patient done with breakfast tray. ambulated to bedside commode. bm. diarrhea with urine output. measured. 500 cc. 100% of tray eaten. no acute distress. lights turned off for comfort. denies needs and pain. educated on s/s of Pe's. educated on use of call light for any feeling of sob.
--- NOTE | 2019-05-13 09:28 | NUR ---
called pharmacy for nasal spray. staated they were on their way up here with it
--- NOTE | 2019-05-13 11:56 | NUR ---
PATIENT GIVING HERSELF A BATH. ORAL CARE. AND AMBULATED TO BEDSIDE JS
--- NOTE | 2019-05-13 13:00 | NUR ---
dr daigle at bedside. no transfer during this time due to possible procedure tomorrow morning per radiology. nurse in the am needs to call radiology and see if they want the lovenox given.
--- NOTE | 2019-05-13 15:21 | NUR ---
patient resting. no acute distress. hob at 45. denies pain and needs at this time. vss will continue to monitor
--- NOTE | 2019-05-13 17:46 | NUR ---
UP IN BED EATING SUPPER AT THIS TIME. VSS. NO ACUTE DISTRESS NOTED. CALL LIGHT IN REACH. WILL CONTINUE PLAN OF CARE.
--- NOTE | 2019-05-13 19:51 | NUR ---
REPORT RECEIVED, SHIFT ASSESSMENT COMPLETED PER FLOW SHEET, SEE FOR DETAILS. 2054 SCHEDULED MEDS GIVEN, SEE EMAR FOR DETAILS. 2200 X1 BM. VOIDED 430 ML, YELLOW UOP. DENIES OTHER NEEDS. CALL LIGHT WITHIN REACH. 2313 REASSESSMENT COMPLETED PER FLOW SHEET, SEE FOR DETAILS. DENIES NEEDS. CALL LIGHT WITHIN REACH.
[2019-05-14] VITALS (13 sets, daily range): BP systolic 94–139; BP diastolic 51–83; Ht 160 cm; Wt 140.0 kg
--- NOTE | 2019-05-14 01:00 | NUR ---
RESTING IN BED, NO ACUTE CHANGES NOTED. CALL LIGHT WITHIN REACH. WILL CONTINUE TO MONITOR. 0302 REASSESSMENT COMPLETED PER FLOW SHEET, SEE FOR DETAILS. DENIES NEEDS. CALL LIGHT WITHIN REACH. 0500 CHG BATH GIVEN. COMPLETE BED LINEN CHANGE PROVIDED. DENIES OTHER NEEDS. CALL LIGHT WITHIN REACH.
[2019-05-14 03:56] LABS: BASOPHILS 0.5 % (0-2); EOSINOPHILS 6.5 % (0-7); HEMATOCRIT 40.4 % (36.0-48.0); HEMOGLOBIN 13.1 g/dL (12-16); IMMATURE GRANULOCYTES 0.7 % (0-5); LYMPHOCYTES 39.4 % (15-50); MCHC 32.4 g/dL (31.0-37.0); MCV 89.4 fL (80.0-100.0); MEAN PLATELET VOLUME 8.6 fL (7.4-10.4); MONOCYTES 8.7 % (2-11); NEUTROPHILS 44.2 % (40-80); PLATELET COUNT 238 10x3/uL (130-400); RBC 4.52 10x6/uL (4.00-5.40)
[2019-05-14 04:09] LABS: ALBUMIN 2.7 g/dL (3.4-5.0); ANION GAP 9.6 mmol/L (8-16); BILIRUBIN - TOTAL 0.3 mg/dL (0.2-1.3); CALCIUM 8.6 mg/dL (8.5-10.1); CARBON DIOXIDE 28.9 mmol/L (21.0-32.0); MAGNESIUM - SERUM 2.2 mg/dL (1.8-2.4); POTASSIUM - SERUM 3.5 mmol/L (3.5-5.1); PROTEIN - SERUM 6.6 g/dL (6.4-8.2)
--- NOTE | 2019-05-14 07:00 | NUR ---
REPORT RECEIVED FROM THE OFF GOING RN. SEE ASSESSMENT IN THE PTS FLOW SHEET. PT DENIES PAIN AT THIS TIME. VSS. CALL LIGHT IN REACH. WILL CONT POC.
--- NOTE | 2019-05-14 07:09 | NUR ---
SPOKE TO KENYON FROM INTERVENTIONAL RADIOLOGY, HE STATED THAT DR. ARAUZ WILL BE HERE TODAY. UDPATED HIM ON PATIENT'S STATUS, HE STATED THAT HE IS NOT SURE IF PATIENT WILL BE GOING IN FOR ANY INTERVENTION BUT THAT HE WILL FIND OUT AND GIVE US A CALL BACK, FOR NOW HOLD LOVENOX UNTIL HE CALLS BACK.
--- NOTE | 2019-05-14 08:14 | NUR ---
ASHLIE WITH IR AT THE PTS BEDSIDE. KEEP NPO PREPARE FOR IR PROCEDURE TODAY. GO AHEAD AND GIVE LOVENOX PER ASHLIE JOHNSON WITH IR. SEE ORDERS. WILL CONT POC.
[2019-05-14 08:45] LABS: INR 1.1 (0.85-1.17); PROTIME 13.7 SECONDS (11.6-15.0)
--- NOTE | 2019-05-14 09:55 | NUR ---
CONSENTS FOR RLE THROMBECTOMY AND VENOGRAM SIGNED BY THE PT. TYLORED BY JEF JOHNSON. CONSENTS IN THE CHART.
--- NOTE | 2019-05-14 10:16 | NUR ---
DR STUART AT THE PTS BEDSIDE. OK TO TRANSFER TO THE FLOOR.
--- NOTE | 2019-05-14 11:00 | NUR ---
PT ASSISTED TO THE BEDSIDE COMMOND. PT VOIDED, HAD A SMALL BM AND SLIGHLY BLOODY IN THE BUCKET. PT SAID THAT SHE STARTED HER PRERIOD. OFFERED WOMEN HYGIEN PRODUCTS AND PT DENIED "ILL JUST GET MY BOYFRIEND TO BRING ME SOME".
--- NOTE | 2019-05-14 11:13 | EC ---
PATIENT:EMILE GRULLON DATE OF SERVICE: 05/10/19 SEX: F MEDICAL RECORD: [id number] DATE OF : 67 LOCATION:[facility] D230 AGE OF PATIENT: 53 ADMISSION DATE: 05/10/19 REFERRING PHYSICIAN: INTERPRETING PHYSICIAN: RAYSA FUNES MD ECHOCARDIOGRAM REPORT ECHO CHARGES 4 ECHO COMPLETE Date: 05/10/19 CLINICAL DIAGNOSIS: DYSPNEA/CHEST PRESSURE ECHOCARDIOGRAPHIC MEASUREMENTS (adult normal given) AC root (d.<3.7cm) 2.6 cm LV Septum d (<1.2 cm> 1.0 cm Valve Excursion 1.9 cm LV Septum (systole) 1.5 cm Left Atria (s.<4.0cm> 4.6 cm LVPW d(<1.2cm) 0.9 cm RV (d.<2.3cm) 3.6 cm LVPW (sytole) 1.7 cm LV diastole(<5.6CM) 5.2 cm MV E-F(>70mm/sec) cm LV systole 3.1 cm LVOT Diameter 1.9 cm MV exc.(>10mm) cm Est.ejection fraction (50-75%) % DOPPLER: LVIT cm/sec A 113 cm/sec E 87.0 cm/sec LA cm/sec RVSP 53.0 mmHg LVOT 104 cm/sec AOP1/2T m/s Asc. Ao 158 cm/sec RVOT 62.0 cm/sec RA cm/sec PA 95.0 cm/sec AV Gradient Peak 10.0 mmHg AV Mean 4.8 mmHg AV Area 1.6 cm MV Gradient Peak 6.5 mmHg MV Mean 1.9 mmHg MV Area cm COMMENTS: Palliative Senior Np: 1 ANGIE PEREZOE Grader Meat: 1 Dr. Funes TAPE# PACS Pericardial Effusion N DATE OF SERVICE: ECHOCARDIOGRAM FINDINGS: 1. Left ventricular chamber size is within normal limits. Left ventricular systolic function is normal. Overall ejection fraction estimated at 50%-55%. 2. Left atrium is enlarged at 4.6 cm. Right atrium and right ventricular chamber sizes are mildly dilated as well. 3. Valvular structures have normal structure and motion. ECHOCARDIOGRAM REPORT [id number] EMILE GRULLON 4. Doppler interrogation reveals moderate tricuspid regurgitation, no other valvular insufficiency or stenosis. Pulmonary systolic pressure is estimated at 53 mmHg. 5. No evidence of pericardial effusion or left ventricular thrombus. TRANSINT:[id number] Voice Confirmation ID: [id number] DOCUMENT ID: [id number] RAYSA FUNES MD at 1113 CC: [id number] DICTATION DATE: 05/11/19 1212 PEANUT FARMER: 05/11/19 1530 ADM IN [facility] [address] [id number]
--- NOTE | 2019-05-14 11:13 | CN ---
PATIENT NAME:EMILE GRULLON MEDICAL RECORD: [id number] : 67 LOCATION:[id number] ADMIT DATE: 05/10/19 ACCOUNT: [id number] CONSULTING PHYSICIAN: RAYSA MCINTYRE MD REFERRING PHYSICIAN: PETRONA RUANO MD DATE OF CONSULTATION: 05/11/2019 CARDIOLOGY CONSULTATION DIAGNOSES: 1. Chest pain. 2. Increased troponin. 3. Pulmonary embolus. 4. Shortness of breath, dyspnea on exertion. 5. Deep vein thrombosis. 6. Obesity. 7. Sleep apnea. 8. Acute hypoxic respiratory failure. HISTORY OF PRESENT ILLNESS: Ms. Grullon presents with shortness of breath, dyspnea on exertion as well as chest pain. She was noted to have extensive bilateral pulmonary emboli and right lower extremity deep vein thrombosis. EKG is with no acute ST-T abnormalities. She has no history of ischemic heart disease. PHYSICAL EXAMINATION: CONSTITUTIONAL/GENERAL APPEARANCE: Well nourished, well developed, appears stated age. EYES: Lids and conjunctivae noninjected. No discharge. No pallor. ENT: Lips within normal limit. No cyanosis. No pallor. NECK: Carotid arteries, bilateral normal upstroke. No bruits. No thrills. No jugular venous pressure or distention. CERVICAL LYMPH NODES: Nontender. Nonenlarged. THYROID: Not enlarged. No nodules. CARDIOVASCULAR: Precordial exam, nondisplaced. No heaves or pericardial thrills. Rate and rhythm, regular. Heart sounds, normal S1, normal S2. No S3, no gallop, no rub. Systolic murmur, not heard. Diastolic murmur, not heard. RESPIRATORY: Respiratory effort, unlabored. Normal curvature. No thoracic deformity. No chest wall tenderness. Percussion, resonant. Auscultation, clear. No wheezes, no rales, no rhonchi. ABDOMEN: Soft, nondistended, nontender. No abdominal pain, no vomiting and normal appetite. MUSCULOSKELETAL: No joint tenderness, normal gait, normal tone. SKIN: Warm and dry. OVERALL IMPRESSION: Increased troponin secondary to the pulmonary emboli. At this time, we will get an echocardiogram to document pulmonary pressures for future following of this. Otherwise, no other cardiac workup or treatment is necessary. TRANSINT:[id number] Voice Confirmation ID: [id number] DOCUMENT ID: [id number] CONSULT REPORT [id number] EMILE GRULLON, RAYSA TRAYLOR at 1113 CC: [id number] DICTATION DATE: 05/11/19 1043 CERTIFIED [employer] FACILITY OPERATOR: 05/11/19 1304 ADM IN [place] [id number] [place] [id number]
--- NOTE | 2019-05-14 11:30 | NUR ---
PT LEFT FOR IR PROCEDURE.
--- NOTE | 2019-05-14 12:43 | NUR ---
REPORT CALLED TO MARIELLE ON MED 2. NOTIFIED HER THAT THE PT IS CURRENLY IR AND THAT THE PT WILL BE COMING TO HER. FAMILY NOTIFIED.
--- NOTE | 2019-05-14 13:17 | NUR ---
ABD RESULTS REVIEWED BY DR STUART. ADJUSTED BIPAP TO 50% SPO2 ON THE MONITOR 90 AND ABOVE
[2019-05-14 14:08] LABS: ACLA - IGG AB <9 GPL U/mL (0-14); ACLA - IGM AB <9 MPL U/mL (0-12)
--- NOTE | 2019-05-14 19:02 | NUR ---
DENIES NEEDS AT THIS TIME PT OBSERVING BED REST EXCEPT FOR RESTROOM DRSG TO RT ANKLE INTACT NO BLEED THROUGH PULSES GOD BED IS LOW AND LOCKED AND CALL LIGHT IN REACH
--- NOTE | 2019-05-14 19:22 | NUR ---
I NOTED SEVERAL ORDERS THAT WERE WRITTEN AT 1255 AND THUS ARE PAST TIME TO SERVE THEIR PURPOSE SUCH ICE TO PUNCTURE SITE
[2019-05-15 00:25] VITALS: BP 105/58
[2019-05-15 03:06] LABS: PROTEIN S - FREE 89 % (57-157); PROTEIN S - TOTAL 63 % (60-150)
[2019-05-15 04:27] VITALS: BP 106/58
[2019-05-15 05:08] LABS: PROTEIN S - FREE 85 % (57-157); PROTEIN S - FUNCTIONAL 77 % (63-140); PROTEIN S - TOTAL 70 % (60-150)
[2019-05-15 07:00] LABS: HEMATOCRIT 40.7 % (36.0-48.0); HEMOGLOBIN 13.2 g/dL (12-16); MCH 28.8 pg (26.0-34.0); MCHC 32.4 g/dL (31.0-37.0); MCV 88.9 fL (80.0-100.0); PLATELET COUNT 219 10x3/uL (130-400); RBC 4.58 10x6/uL (4.00-5.40); RDW 14.1 % (11.5-14.5); WBC 6.5 10x3/uL (4.8-10.8)
[2019-05-15 07:13] LABS: ALBUMIN 2.7 g/dL (3.4-5.0); ALKALINE PHOSPHATASE 139 U/L (46-116); BILIRUBIN - TOTAL 0.17 mg/dL (0.2-1.3); CALC OSMOLALITY 282 mosm/kg (275-300); CARBON DIOXIDE 26.3 mmol/L (21.0-32.0); CHLORIDE - SERUM 106 mmol/L (98-107); GLUCOSE 109 mg/dL (74-106); MAGNESIUM - SERUM 2.3 mg/dL (1.8-2.4); PROTEIN - SERUM 6.1 g/dL (6.4-8.2); SODIUM 139 mmol/L (136-145); UREA NITROGEN 23 mg/dL (7-18)
--- NOTE | 2019-05-15 07:15 | NUR ---
REPORT RECEVIED AND PATIENT CARE ASSUMED. PATIENT LAYING IN BED ON BACK AWAKE, ALERT AND ORIENTED X 4. PATIENT DENIES ANY NEEDS OR PAIN. WILL CONTINUE WITH PLAN OF CARE. SR UP X 2 BED IN LOW POSITION AND CALL LIGHT IN REACH.
[2019-05-15 07:23] LABS: ALT (SGPT) 64 U/L (10-68); CREATININE - SERUM 0.7 mg/dL (0.6-1.3); POTASSIUM - SERUM 3.9 mmol/L (3.5-5.1); eGFR NON AFRICAN AMERICAN > 90 mL/min (90-120)
[2019-05-15 09:59] LABS: ANISOCYTOSIS OCC; EOSINOPHILS 3 % (0-7); LYMPHOCYTES 23 % (15-50); MONOCYTES 14 % (2-11); NEUTROPHILS 59 % (40-80); PLATELET ESTIMATE NORMAL; ROULEAUX OCC
--- NOTE | 2019-05-15 10:40 | NUR ---
PATIENT IS STABLE AND VSS. OFFERED PATIENT SHOWER. PATIENT DELINED. STATES THAT SHE IS WAITING FOR SPOUSE TO BRING HER TOILETRIES. PATKIENT DENIES ANY NEEDS OR PAIN. WILL CONTINUE WITH PLAN OF CARE. SR UPX 2 BED IN LOW POSITION AND CALL LIGHT IN REACH.
[2019-05-15 11:01] VITALS: BP 118/76
--- NOTE | 2019-05-15 14:42 | NUR ---
PATIENT AMBULATING IN HALLWAY . PATIENT HAS STEADY GATE AND TOLERATING WELL. WILL CONTINUE TO MONITOR.
[2019-05-15 15:19] LABS: APPEARANCE CLEAR (CLEAR); BILIRUBIN NEGATIVE (NEGATIVE); COLOR YELLOW (YELLOW); GLUCOSE NEGATIVE (NEGATIVE); KETONE NEGATIVE (NEGATIVE); NITRITE NEGATIVE (NEGATIVE); PROTEIN NEGATIVE (NEGATIVE); UROBILINOGEN NORMAL (NORMAL)
[2019-05-15 15:23] LABS: WHITE CELLS - URINE OCC /hpf (NEGATIVE)
[2019-05-15 15:24] LABS: EPITHELIAL CELLS OCC /hpf (0-5); RED CELLS - URINE 0-5 /hpf (0-5)
[2019-05-15 16:08] LABS: LUPUS - INTERPRETATION Comment: (()); LUPUS - THROMBIN NEUT 18.1 sec (0.0-23.0); LUPUS - THROMBIN TIME 45.1 sec (0.0-23.0); LUPUS - THROMBIN TIME MIX 32.7 sec (0.0-23.0); LUPUS - dRVVT 29.4 sec (0.0-47.0)
--- NOTE | 2019-05-15 19:34 | NUR ---
AWAKE AND ALERT PT IS MOVING ABOUT WITH NO DIFICULTY DENIES PAIN OR NEEDS BED IS LOW AND LOCKED AND CALL LIGHT BROUGHT WITHIN REACH
[2019-05-15 20:00] VITALS: BP 102/67
[2019-05-16 00:40] VITALS: BP 110/60
--- NOTE | 2019-05-16 02:36 | NUR ---
I have reviewed this patient and I concur with the Shift Assessment completed by the Licensed Practical Nurse today this shift.
[2019-05-16 05:17] LABS: FACTOR II DNA ANALYSIS Negative (())
[2019-05-16 05:43] VITALS: BP 128/67
[2019-05-16 06:11] LABS: HEMATOCRIT 41.8 % (36.0-48.0); HEMOGLOBIN 13.4 g/dL (12-16); MCH 28.9 pg (26.0-34.0); MCHC 32.1 g/dL (31.0-37.0); MCV 90.3 fL (80.0-100.0); MEAN PLATELET VOLUME 8.7 fL (7.4-10.4); RBC 4.63 10x6/uL (4.00-5.40); RDW 13.9 % (11.5-14.5)
[2019-05-16 06:32] LABS: ALBUMIN 2.7 g/dL (3.4-5.0); ALKALINE PHOSPHATASE 110 U/L (46-116); ALT (SGPT) 59 U/L (10-68); BILIRUBIN - DIRECT 0.08 mg/dL (0.00-0.30); BILIRUBIN - INDIRECT 0.27 mg/dL (0.00-1.00); BILIRUBIN - TOTAL 0.35 mg/dL (0.2-1.3); CALC OSMOLALITY 276 mosm/kg (275-300); CALCIUM 8.4 mg/dL (8.5-10.1); CARBON DIOXIDE 25.7 mmol/L (21.0-32.0); CHLORIDE - SERUM 104 mmol/L (98-107); CREATININE - SERUM 0.8 mg/dL (0.6-1.3); GLUCOSE 88 mg/dL (74-106); MAGNESIUM - SERUM 2.2 mg/dL (1.8-2.4); PROTEIN - SERUM 6.4 g/dL (6.4-8.2); SODIUM 138 mmol/L (136-145); UREA NITROGEN 19 mg/dL (7-18); eGFR NON AFRICAN AMERICAN 80 mL/min (90-120)
[2019-05-16 07:54] VITALS: BP 96/50
[2019-05-16 09:10] LABS: PROTEIN C - ANTIGEN 95 % (60-150); PROTEIN C - FUNCTIONAL 94 % (73-180)
[2019-05-16 11:29] VITALS: BP 117/64
[2019-05-16 14:57] VITALS: BP 97/45
[2019-05-16] MEDS ORDERED: ELIQUIS5 MG PO (15:25)
--- NOTE | 2019-05-16 17:27 | MORECARE ---
CASE MANAGEMENT DISCHARGE SUMMARY PATIENT: EMILE GRULLON UNIT: [id number] ADM DATE: 05/10/19 AGE: 53 : [birth year] SEX: F ROOM/BED: D.2106 AUTHOR: RAMIREZ HUBER PHYSICIAN: REFERRING PHYSICIAN: PETRONA RUANO MD DATE OF SERVICE: 05/16/19 Discharge Plan Patient Name: EMILE GRULLON Facility: [facility]:[place] : 1965 Planned Disposition: Home Anticipated Discharge Date: 05/16/19 Discharge Date: Expected LOS: 6 Initial Reviewer: [email or web address] Initial Review Date: 05/16/2019 Generated: 05/16/19 6:26 pm Coverage Notice Reviewer: [email or web address] - Anish Scott Notice Issued Date-Time: 05/16/2019 14:15 Notice Type: IM Discharge Notice Notice Delivered To: Patient Relationship to Patient: Tombstone Erector Name: Delivery Method: HAND - Hand Delivered Debra Days: Prior Verbal Notification: Recipient Understood Notice: Yes Recipient Signature: Yes Med Rec Note Co-signed by Attending: Coverage Notice Comment: Patient Name: EMILE GRULLON Page [phone] at 1727 All edits/amendments must be made on the electronic document DICTATION DATE: 05/16/191725 HOBBER: SABI 05/16/191725 RPT#: [id number] DC DATE: STATUS: ADM IN [place] [address] [place] [address] END OF REPORT
--- NOTE | 2019-05-16 17:35 | MORECARE ---
CASE MANAGEMENT DISCHARGE SUMMARY PATIENT: EMILE GRULLON UNIT: [id number] ADM DATE: 05/10/19 AGE: 53 : 67 SEX: F ROOM/BED: D.2106 AUTHOR: CECILE,DOC PHYSICIAN: REFERRING PHYSICIAN: PETRONA RUANO MD DATE OF SERVICE: 05/16/19 Discharge Plan Patient Name: EMILE GRULLON Facility: [facility]:[place] : 1965 Planned Disposition: Home Anticipated Discharge Date: 05/16/19 Discharge Date: Expected LOS: 6 Initial Reviewer: [email or web address] Initial Review Date: 05/16/2019 Generated: 05/16/19 6:35 pm Comments DCP- Discharge Planning Updated by [email or web address]: Anish Scott on 05/16/19 4:[address] Patient Name: EMILE GRULLON Admission Status: ER Accout number: [id number] Admission Date: 05-10-2019 : 1965 Admission Diagnosis: Attending: PETRONA RUANO Current LOS: 6 Anticipated DC Date: 05-16-2019 Planned Disposition: Home Primary Insurance: [facility] MEDIC[employer] Discharge Planning Comments: CM MET WITH PT IN ROOM TO DISCUSS DISCHARGE PLANNING AND NEEDS. PT REPORTS LIVING AT HOME INDEPENDENTLY WITH HER BOYFRIEND. PT HAS NO MEDICAL EQUIPMENT AND NO OUTSIDE SERVICES ASSISTING IN THE HOME. CM DISCUSSED AVAILABILITY OF HOME HEALTH, REHAB SERVICES AND MEDICAL EQUIPMENT. PT DENIES DISCHARGE NEEDS, REPORTS HER BOYFRIEND WILL PICK HER UP FOR DISCHARGE HOME. WARPMAN NURSE NOTIFIED. Accounting Manager Controller: Anish Scott DCPIA - Discharge Planning Initial Assessment Updated by [email or web address]: Anish Scott on 05/16/19 5:27 pm * Is the patient Alert and Oriented? Yes * How many steps to enter\exit or inside your home? 10 * PCP DR. SCHUSTER * [facility]acy [facility] * Preadmission Environment Home with Family * ADLs Independent * Equipment None * Other Equipment NO MEDICAL EQUIPMENT PROVIDER PREFERENCE * List name and contact numbers for known caregivers / representatives who currently or will assist patient after discharge: PINKY CHEATHAM, BOYFRIEND, * Verbal permission to speak to the caregivers and representatives has been obtained from the patient. N/A * Community resources currently utilized None * Please name any agencies selected above. NONE * Additional services required to return to the preadmission environment? No * Can the patient safely return to the preadmission environment? Yes * Has this patient been hospitalized within the prior 30 days at any hospital? No Coverage Notice Reviewer: [email or web address] Isabel Anish Jimenezwell Notice Issued Date-Time: 05/16/2019 14:15 Notice Type: IM Discharge Notice Notice Delivered To: Patient Relationship to Patient: Nurse Tech Name: Delivery Method: HAND - Hand Delivered Debra Days: Prior Verbal Notification: Recipient Understood Notice: Yes Recipient Signature: Yes Med Rec Note Co-signed by Attending: Coverage Notice Comment: Last DP export: 05/16/19 4:27 pm Patient Name: EMILE GRULLON Page [phone] at 1735 All edits/amendments must be made on the electronic document DICTATION DATE: 05/16/191734 BUSINESS AREA MANAGER: SABI 05/16/19 173 RPT#: [id number] DC DATE: STATUS: ADM IN [facility] [address] [place] [address] END OF REPORT
== END 2019-05-16 18:39 | disposition home or self-care (01) | DRG 270 ==
LOC: D.ER 14:13 → D.M2 17:09 → D.ICU 17:09 → D.M2 05-14 13:19
PROVIDERS: Emergency Medicine; Family Medicine; Internal Medicine Pulmonary Disease; Radiology Diagnostic Radiology; ADMIT Emergency Medicine; ATTEND Emergency Medicine
PROC: 06CY3ZZ Extirpation of Matter from Lower Vein, Percutaneous Approach (ICD-10-PCS; principal; 2019-05-14 11:00)
DX: I82.441 Acute embolism and thrombosis of right tibial vein (principal); I26.99 Other pulmonary embolism without acute cor pulmonale; J96.01 Acute respiratory failure with hypoxia; Z68.43 Body mass index [BMI] 50.0-59.9, adult; I82.431 Acute embolism and thrombosis of right popliteal vein; E66.01 Morbid (severe) obesity due to excess calories; I10 Essential (primary) hypertension; F32.9 Major depressive disorder, single episode, unspecified; E87.6 Hypokalemia; G89.29 Other chronic pain; M54.9 Dorsalgia, unspecified

== ENCOUNTER → 2019-09-26 12:59 | Outpatient (CLI) | payer MEDICARE, MEDICAID ==
[2019-06-22 11:01] VITALS: BMI 54.6
[~2019-09-26 12:59] MED LIST changes: +ELIQUIS5 MG PO; +HYDROCODON-ACE1 EA10 PO; +LISINOPRIL-HCT1 EAC7 PO
== END | disposition home or self-care (01) ==
LOC: D.LABREF 12:59
PROVIDERS: ATTEND Internal Medicine Pulmonary Disease
DX: Z11.59 Encounter for screening for other viral diseases (principal); J45.909 Unspecified asthma, uncomplicated

== ENCOUNTER → 2019-10-23 12:13 | Outpatient (CLI) | payer MEDICARE, MEDICAID ==
[2019-06-22 11:01] VITALS: BMI 54.6
== END | disposition home or self-care (01) ==
LOC: D.LABREF 12:13
PROVIDERS: ATTEND Internal Medicine Pulmonary Disease
DX: Z11.59 Encounter for screening for other viral diseases (principal)

== ENCOUNTER → 2019-10-24 08:50 | Outpatient (CLI) | payer MEDICARE, MEDICAID ==
[2019-06-22 11:01] VITALS: BMI 54.6
--- NOTE | ~2019-10-24 | EC ---
PATIENT:EMILE GRULLON DATE OF SERVICE: 10/24/19 SEX: F MEDICAL RECORD: [id number] DATE OF : 67 LOCATION:[facility] AGE OF PATIENT: 53 ADMISSION DATE: 10/24/19 REFERRING PHYSICIAN: INTERPRETING PHYSICIAN: GABE COE MD ECHOCARDIOGRAM REPORT ECHO CHARGES 4 ECHO COMPLETE Date: 10/24/19 CLINICAL DIAGNOSIS: PULMONARY HTN ECHOCARDIOGRAPHIC MEASUREMENTS (adult normal given) AC root (d.<3.7cm) 2.6 cm LV Septum d (<1.2 cm> 0.6 cm Valve Excursion 1.3 cm LV Septum (systole) 1.1 cm Left Atria (s.<4.0cm> 4.4 cm LVPW d(<1.2cm) 1.0 cm RV (d.<2.3cm) 3.3 cm LVPW (sytole) 1.1 cm LV diastole(<5.6CM) 5.4 cm MV E-F(>70mm/sec) cm LV systole 4.4 cm LVOT Diameter 2.0 cm MV exc.(>10mm) cm Est.ejection fraction (50-75%) % DOPPLER: LVIT cm/sec A 95 cm/sec E 78 cm/sec LA cm/sec RVSP 30.6 mmHg LVOT 92 cm/sec AOP1/2T m/s Asc. Ao 108 cm/sec RVOT 45 cm/sec RA cm/sec PA 59 cm/sec AV Gradient Peak 4.6 mmHg AV Mean 2.9 mmHg AV Area 2.8 cm MV Gradient Peak 3.8 mmHg MV Mean 1.7 mmHg MV Area cm COMMENTS: Log Snaker: Brandi [facility] Sales Specialist: 3 Dr. Cook TAPE# PACS Pericardial Effusion N DATE OF SERVICE: Adequate 2D, color flow imaging, spectral Doppler and M-mode. LVH is present. LV internal dimensions are normal. Wall motion is normal. EF is greater than or equal to 55%. Aortic valve is tricuspid. No evidence of stenosis by Doppler interrogation. Left atrium is dilated at 4.4 cm. Mitral valve shows no prolapse. Trace MR. Right-sided chambers are grossly normal. Trace TR. ECHOCARDIOGRAM REPORT [id number] EMILE GRULLON TRANSINT:[id number] Voice Confirmation ID: [id number] DOCUMENT ID: [id number] GABE COE MD CC: [id number] DICTATION DATE: 10/24/19 1231 PAYMENT ANALYST: 10/24/19 2228 DEP CLI 10/24/19 [id number] [place] [address]
== END | disposition home or self-care (01) ==
LOC: D.RT 09-28 09:00
PROVIDERS: ATTEND Internal Medicine Pulmonary Disease
DX: J45.909 Unspecified asthma, uncomplicated (principal); I27.21 Secondary pulmonary arterial hypertension; I82.409 Acute embolism and thrombosis of unspecified deep veins of unspecified lower extremity; I26.99 Other pulmonary embolism without acute cor pulmonale

== ENCOUNTER → 2020-10-03 07:49 | Outpatient (CLI) | payer MEDICARE, MEDICAID ==
[2019-06-22 11:01] VITALS: BMI 54.6
--- NOTE | 2020-10-04 20:10 | EC ---
PATIENT:EMILE GRULLON DATE OF SERVICE: 10/03/20 SEX: F MEDICAL RECORD: [id number] DATE OF : 67 [facility] AGE OF PATIENT: 54 ADMISSION DATE: 10/03/20 REFERRING PHYSICIAN: INTERPRETING PHYSICIAN: GABE COE MD ECHOCARDIOGRAM REPORT ECHO CHARGES 4 ECHO COMPLETE Date: 10/03/20 CLINICAL DIAGNOSIS: ANGINA/HEART MURMUR ECHOCARDIOGRAPHIC MEASUREMENTS (adult normal given) AC root (d.<3.7cm) 3.2 cm LV Septum d (<1.2 cm> 1.5 cm Valve Excursion 1.6 cm LV Septum (systole) 1.8 cm Left Atria (s.<4.0cm> 4.2 cm LVPW d(<1.2cm) 1.4 cm RV (d.<2.3cm) 4.4 cm LVPW (sytole) 1.7 cm LV diastole(<5.6CM) 3.8 cm MV E-F(>70mm/sec) cm LV systole 2.3 cm LVOT Diameter 1.8 cm MV exc.(>10mm) 1.6 cm Est.ejection fraction (50-75%) % DOPPLER: LVIT cm/sec A 89.0 cm/sec E 79.0 cm/sec LA cm/sec RVSP 30 mmHg LVOT 121 cm/sec AOP1/2T m/s Asc. Ao 151 cm/sec RVOT 113 cm/sec RA cm/sec PA 151 cm/sec AV Gradient Peak 9.14 mmHg AV Mean 4.71 mmHg AV Area 2.2 cm MV Gradient Peak 6.82 mmHg MV Mean 2.32 mmHg MV Area cm COMMENTS: Administrative Clerk: 2 KELSEY PITTS [employer] Painting Supervisor: 3 Dr. Cook TAPE# PACS Pericardial Effusion N DATE OF SERVICE: FINDINGS: Mild LVH. LV internal dimension is normal. Wall motion is normal. EF is greater than or equal to 55%. Aortic valve is tricuspid. No evidence of stenosis by Doppler interrogation. Left atrium is minimally dilated at 4.2 cm. Mitral valve shows no prolapse. Trivial MR. Right-sided chambers upper limits of normal to mildly dilated. Trace TR. RV systolic pressure is estimated greater than or equal to 30 mmHg via the continuity equation. TRANSINT:[id number] Voice Confirmation ID: [id number] DOCUMENT ID: [id number] ECHOCARDIOGRAM REPORT [id number] EMILE GRULLON,GABE Jarvis MD at 2009 CC: [id number] DICTATION DATE: 10/04/20830 TELEGRAPH SERVICE CLERK: 10/04/2058 DEP CLI 10/03/20 [address] [id number]
--- NOTE | 2020-10-04 20:10 | ST ---
PATIENT:EMILE GRULLON MEDICAL RECORD: [id number] SEX: F LOCATION:[facility] ORDER #: ADMISSION DATE: 10/03/20 AGE OF PATIENT: 54 REFERRING PHYSICIAN: INTERPRETING PHYSICIAN: GBAE COE MD DATE OF SERVICE: 10/03/2020 NUCLEAR STRESS TEST GATED: Gated is normal with normal wall motion and normal wall thickening. Calculated EF 53%. SPECT IMAGING: SPECT imaging was performed. 1. Short axis view: Short axis view shows good uptake along the anterior wall, lateral wall, and inferior wall. 2. Horizontal axis: Horizontal axis confirms good uptake along the anterior wall and inferior wall. 3. Vertical axis: Vertical axis shows good uptake along the lateral wall and septum. FINAL IMPRESSION: 1. Normal gated, normal wall motion, normal EF 53%. 2. Normal SPECT imaging. This scan is felt to be at low risk for any significant myocardial ischemia or previous myocardial infarction. LV function remains normal. Continue risk factor modification is recommended. TRANSINT:[id number] Voice Confirmation ID: [id number] DOCUMENT ID: [id number] GABE COE MD at 2009 CC: [id number] DICTATION DATE: 10/03/20 1624 HUMAN RESOURCES SUPERVISOR: 10/04/20 0142 DEP CLI 10/03/20 [id number] [place] [address]
== END | disposition home or self-care (01) ==
LOC: D.HCCECHO 07:49
PROVIDERS: ATTEND Internal Medicine Interventional Cardiology
DX: I20.9 Angina pectoris, unspecified (principal); I27.20 Pulmonary hypertension, unspecified; I10 Essential (primary) hypertension; R01.1 Cardiac murmur, unspecified